=== PATIENT | male | born 1985 | race Caucasian/White ===

== ENCOUNTER 2024-01-08 00:18 | Observation (INO) ==
[2024-01-08] MEDS ORDERED: VANCOMYCIN CONSULT ACTIVE PRN (00:42)
--- NOTE | 2024-01-08 00:52 | Emergency Department Note ---
History of Present Illness General Chief complaint: Infection Stated complaint: INFECTION IN LEFT FOOT/LEG Time Seen by Provider: 01/08/24 00:36 History of Present Illness This 38-year-old male who uses drugs presents ER complaining of left lower leg infection. Patient was at [facility] twice and started on Keflex and Bactrim. He states he is only taken 1 dose of the medication. Patient states he was offered admission yesterday and declined. Patient states the infection has been spreading. Patient denies chest pain, dyspnea, fevers, flulike illness. His lymph nodes in his groin are swollen. Him and his partner are anxious with flight of ideas in the room and have difficulty staying still. Past Med/Surg History Problem List (Updated 01/08/24 @ 01:17 by Melisa Cassidy PA-C) Cellulitis of left lower extremity (Acute) Social History Smoking Status: Current every day smoker Feels Safe at Home: Yes Review of Systems A total of 10 systems reviewed and were otherwise negative Physical Exam Vital Signs Vital Signs - 24 hr 01/08/24 00:23 Temperature 37.0 C Temperature Source Oral Pulse Rate 111 H Blood Pressure 160/90 H Blood Pressure Mean 113 Pulse Oximetry 95 Oxygen Delivery Method Room Air Sepsis Recent Fever Within 48 Hours Yes Sepsis New/Unexplained Change in Mental Status No Sepsis Action Taken by Nursing No Action Required VITALS: Vitals are noted on the nurse's note and reviewed by myself. Vital signs stable. GENERAL: White male fidgety difficulty staying still, in no acute distress, nondiaphoretic, well-developed well-nourished. SKIN: Left lower leg medial aspect of the ankle with open sores with surrounding erythema up to the proximal knee concerning for cellulitis, capillary reflex less than 2 seconds. HEENT: Normocephalic. PERRLA. EOMI. Nares patent. Mucous membranes moist. Neck is supple without nuchal rigidity. HEART: Regular rate and rhythm LUNGS: Clear to auscultation bilaterally without wheezes, rales or rhonchi. No retractions or accessory muscle use. MUSCULOSKELETAL: No gross musculoskeletal defects. Left lower leg with extensive cellulitis. Left ankle with full range of motion. Wound culture taken and sent. Pedal pulses +2 and present. NEURO: Patient was alert and oriented to person place and time. No focal neurological deficits. Course Administered Medications Vancomycin HCl 1,500 mg/ (Sodium Chloride) 530 mls @ 200 mls/hr IV NOW ONE Stop: 01/08/24 03:20 Last Admin: 01/08/24 01:28 Dose: 200 mls/hr Documented By: ROSIBEL Discontinued Medications Ceftriaxone Sodium (Rocephin) 2,000 mg in 50 mls @ 100 mls/hr IV NOW STA Stop: 01/08/24 01:11 Last Infusion: 01/08/24 01:27 Dose: Infused Documented By: Admin: 01/08/24 00:56 Dose: 100 mls/hr Documented By: ROSIBEL Acetaminophen (Ofirmev) 1,000 mg in 100 mls @ 400 mls/hr IV NOW STA Stop: 01/08/24 00:56 Last Infusion: 01/08/24 01:11 Dose: Infused Documented By: Admin: 01/08/24 00:56 Dose: 400 mls/hr Documented By: ROSIBEL Medical Decision Making Medical Records Attestation: I reviewed the patient's medical records. Home Medications Current Medication List: was personally reviewed by me Laboratory Data Attestation: I reviewed the patient's lab results. 01/08/24 00:54 01/08/24 00:54 Lab Results 01/08/24 Range/Units 00:54 WBC 12.83 H (4.8-10.8) K/ul RBC 4.01 L (4.70-6.10) M/uL Hgb 12.3 L (14.0-18.0) g/dl Hct 36.2 L (42.0-52.0) % MCV 90.3 (80.0-100.0) fL MCH 30.7 (25.0-34.0) pg MCHC 34.0 (32.0-36.0) g/dL RDW Std Deviation 39.6 (36.4-46.3) fL RDW Coeff of Demarcus 11.9 (11.5-14.5) % Plt Count 183 (130-400) K/uL MPV 10.1 (9.4-12.4) fL Sodium 133 L (136-145) mmol/L Potassium 3.5 (3.5-5.1) mmol/L Chloride 97 L (98-107) mmol/L Carbon Dioxide 30 (21-32) mmol/L Anion Gap 6 (3-11) BUN 7 (6-23) mg/dl Creatinine 0.61 (0.6-1.4) mg/dl Est Cr Clr Drug Dosing 165.5 ml/min eGFR 127.66 BUN/Creatinine Ratio 11.5 (10-20) Glucose 98 (70-99(Fasting)) mg/dl Calcium 8.2 L (8.6-10.3) mg/dl Total Bilirubin 0.9 (0.2-1.0) mg/dl AST 19 (13-39) U/L ALT 13 (7-52) U/L Alkaline Phosphatase 42 (34-104) U/L Total Protein 6.4 (6.0-8.3) gm/dl Albumin 3.5 (3.4-5.0) gm/dl Globulin 2.9 (2.5-4.0) gm/dl Albumin/Globulin Ratio 1.2 (0.9-2) Imaging Data Attestation: I personally reviewed and interpreted this imaging study as follows: Radiologist's Impression: Venous Doppler Study 01/08/24 00:42 Exam(s): US VENOUS LEFT LOWER EXTREMITY EXAM: US Duplex Left Lower Extremity Veins CLINICAL HISTORY: swelling, ? DVT. TECHNIQUE: Real-time duplex ultrasound scan of the left lower extremity veins integrating B-mode two-dimensional vascular structure, Doppler spectral analysis, color flow Doppler imaging and compression. COMPARISON: No relevant prior studies available. FINDINGS: Deep veins: Unremarkable. No DVT in the visualized common femoral, femoral, proximal deep femoral or popliteal veins. The veins demonstrate normal color flow, are normally compressible, with normal phasic flow and/or augmentation response. The interrogated calf veins are patent. Superficial veins: Unremarkable. No thrombus in the saphenofemoral junction. Soft tissues: Subcutaneous edema noted at the left calf. No popliteal cyst. Lymph nodes: Borderline lymphadenopathy at the left groin measuring up to 10 mm in short axis diameter. IMPRESSION: No evidence for deep vein thrombosis involving the left lower extremity. Subcutaneous edema involving the left calf. Electronically signed by: Dick Vences MD 01/08/24 01:45 AM MDM Narrative Prior records reviewed and summarized as above. Triage Nursing notes reviewed. Additional history obtained from friend. The patient's history was concerning for swelling and redness of the skin. Differential diagnosis: Etiologies such as cellulitis, abscess, MRSA infection, DVT, necrotizing fasciitis, dermatitis, drug eruption, as well as others were entertained.. Physical examination: The physical examination was consistent with cellulitis ER treatment provided: Vancomycin, Rocephin and wound culture were done I did request the records from [facility] On reassessment the patient felt better. Diagnostics interpreted by me: The labs Independently Interpreted by myself revealed leukocytosis Wound culture pending I obtain the records from [facility] and the wound culture done by myself the other day she is the patient has multiple drug resistances but is sensitive to vancomycin. MRSA was present on the wound culture. Imaging studies: Ankle x-ray with soft tissue swelling without fracture or foreign body per my independent interpretation Ultrasound was reviewed and read by radiology as above Consultation: A consultation was placed with the hospitalist. The case was discussed and diagnostics were reviewed. The patient was evaluated in the ER for further treatment. This appears to be left lower leg cellulitis from MRSA. Repeat wound culture was done here. I did finally obtain the records from [facility] and patient's wound culture was reviewed. It is sensitive to vancomycin. There are multiple drug resistances. He has MRSA. Medicine was consulted and the case is discussed. He will be admitted to the medical service. By the evaluation outlined above emergent etiologies such as abscess, necrotizing fasciitis, DVT, as well as others were deemed relatively unlikely. The pt informed about the findings as listed above. All questions were answered and pleased with the treatment. The chart was completed utilizing [employer] Speech voice recognition software. Grammatical errors, random word insertions, pronoun errors, and incomplete sentences are an occassional consequence of this system due to software limitations, ambient noise, and hardware issues. Any formal questions or concerns about the content, text, or information contained within the body of this dictation should be directly addressed to the physician learning support assistant for clarification. Impression & Plan Cellulitis of left lower extremity Discharge Plan Visit Data Chief Complaint: Infection Stated Complaint: INFECTION IN LEFT FOOT/LEG ED Provider: Amy Reynoso ED Midlevel Provider: Melisa Cassidy Discharge Problem: Cellulitis of left lower extremity Patient Disposition: Admitted As Inpatient Condition: Good Forms Stand Alone Forms: My [facility] Referrals Referrals: PCP,NO [Primary Care Provider] -
[2024-01-08] MEDS: cefTRIAXone SODIUM 2,000 MG/50 ML BAG IV STA (00:56)
[2024-01-08] MEDS: ACETAMINOPHEN 1,000 MG/100 ML VIAL IV STA (00:56)
[2024-01-08 01:13] LABS: Hematocrit (blood only) 36.2 % (42.0-52.0); Hemoglobin 12.3 g/dl (14.0-18.0); Mean Corpuscular Hemoglobin 30.7 pg (25.0-34.0); Mean Corpuscular Volume 90.3 fL (80.0-100.0); Mean Platelet Volume 10.1 fL (9.4-12.4); Platelet Count 183 K/uL (130-400); RDW Coefficient of Variation 11.9 % (11.5-14.5); RDW Standard Deviation 39.6 fL (36.4-46.3); Red Blood Count 4.01 M/uL (4.70-6.10); White Blood Count 12.83 K/ul (4.8-10.8)
[2024-01-08] MEDS: VANCOMYCIN HCL 1,500 MG in SODIUM CHLORIDE 0.9% 500 ML IV ONE (01:28)
[2024-01-08 01:29] LABS: Albumin Globulin Ratio 1.2 (0.9-2); Albumin Level 3.5 gm/dl (3.4-5.0); BUN Creatinine Ratio 11.5 (10-20); Bilirubin,Total 0.9 mg/dl (0.2-1.0); Calcium 8.2 mg/dl (8.6-10.3); Creatinine Clr Calc Pharmacy 165.5 ml/min; Globulin 2.9 gm/dl (2.5-4.0); Potassium 3.5 mmol/L (3.5-5.1); Total Protein 6.4 gm/dl (6.0-8.3)
--- NOTE | 2024-01-08 01:46 | Ultrasound Report ---
Exam(s): US VENOUS LEFT LOWER EXTREMITY EXAM: US Duplex Left Lower Extremity Veins CLINICAL HISTORY: swelling, ? DVT. TECHNIQUE: Real-time duplex ultrasound scan of the left lower extremity veins integrating B-mode two-dimensional vascular structure, Doppler spectral analysis, color flow Doppler imaging and compression. COMPARISON: No relevant prior studies available. FINDINGS: Deep veins: Unremarkable. No DVT in the visualized common femoral, femoral, proximal deep femoral or popliteal veins. The veins demonstrate normal color flow, are normally compressible, with normal phasic flow and/or augmentation response. The interrogated calf veins are patent. Superficial veins: Unremarkable. No thrombus in the saphenofemoral junction. Soft tissues: Subcutaneous edema noted at the left calf. No popliteal cyst. Lymph nodes: Borderline lymphadenopathy at the left groin measuring up to 10 mm in short axis diameter. IMPRESSION: No evidence for deep vein thrombosis involving the left lower extremity. Subcutaneous edema involving the left calf. Electronically signed by: Dick Vences MD 01/08/24 01:45 AM
[2024-01-08 02:05] LABS: Basophils # (auto) 0.03 K/uL (0.00-0.20); Basophils % (auto) 0.2 %; Eosinophils # (auto) 0.13 K/uL (0.00-0.50); Immature Granulocytes # (auto) 0.06 K/uL (0.01-0.20); Immature Granulocytes % (auto) 0.5 %; Lymphocytes # (auto) 4.01 K/uL (1.20-3.40); Lymphocytes % (auto) 31.3 %; Monocytes # (auto) 1.32 K/uL (0.11-0.59); Monocytes % (auto) 10.3 %; Neutrophils # (auto) 7.28 K/uL (1.40-6.50); Neutrophils % (auto) 56.7 %; Polychromasia 1+
--- NOTE | 2024-01-08 02:15 | History & Physical Report ---
Date of Service January 08, 2024 Assessment & Plan (1) Cellulitis of left lower extremity: Plan: 38-year-old male with no significant past medical history with ongoing cocaine use and history of IV drug use and states not using IV drugs since last 2 years comes because of left ankle wound and cellulitis. Patient states he had some bug bite 4 days ago and started to develop infection in the left ankle region. He went to [facility] couple of days ago and was prescribed seems Keflex and Bactrim and discharged. He did not take those antibiotics but the next day the infection was getting worse so he went back to [facility] again yesterday when they admitted him. Patient got paranoid and signed out AMA. And as the infection is getting worse and spreading he came here today and agrees to stay in hospital. Cultures from the [facility] showing MRSA in the wound which is also resistant to Bactrim and sensitive to Vanco and Dapto. Patient states was having fevers. Has pain in the left leg and also feeling some lump in the left groin region. Patient states he also has some small lump under the chin which he is concerned about. Denies any headache. Vision is okay. No runny nose or sore throat or cough. No nausea. No chest pain. Says he has some shortness of breath. No abdominal pain. Says he is constipated. Micturating okay. 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 Cellulitis of left lower extremity Wound/ulcer in left ankle medial aspect Cultures from [facility] growing MRSA ER empirically started on IV Vanco and Rocephin which will be continued Will follow the response No DVT on ultrasound Will follow CT scan for any underlying abscess or necrosis History of drug use Counseling History of tobacco use Counseling Small lump in neck will follow ultrasound DVT prophylaxis Lovenox Disposition Medical floor Full code History of Present Illness Chief Complaint: Left lower extremity wound and cellulitis Primary Care Provider: NO PCP 38-year-old male with no significant past medical history with ongoing cocaine use and history of IV drug use and states not using IV drugs since last 2 years comes because of left ankle wound and cellulitis. Patient states he had some bug bite 4 days ago and started to develop infection in the left ankle region. He went to [facility] couple of days ago and was prescribed seems Keflex and Bactrim and discharged. He did not take those antibiotics but the next day the infection was getting worse so he went back to [facility] again yesterday when they admitted him. Patient got paranoid and signed out AMA. And as the infection is getting worse and spreading he came here today and agrees to stay in hospital. Cultures from the [facility] showing MRSA in the wound which is also resistant to Bactrim and sensitive to Vanco and Dapto. Patient states was having fevers. Has pain in the left leg and also feeling some lump in the left groin region. Patient states he also has some small lump under the chin which he is concerned about. Denies any headache. Vision is okay. No runny nose or sore throat or cough. No nausea. No chest pain. Says he has some shortness of breath. No abdominal pain. Says he is constipated. Micturating okay. 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 Past medical history none Past surgical history left collarbone surgery Social history. Smokes 1 pack a day since age 24. Denies any alcohol use. History of IV drug use is not doing IV drugs since last 2 years. Says she uses cocaine sometimes but not on regular basis last time used was yesterday. Family history. Father had prostate and bladder cancer. Mother has hypertension. Allergies Allergy/AdvReac Type Severity Reaction Status Date / Time No Known Allergies Allergy Unverified 01/08/24 04:01 Home Medications Medication Instructions Recorded Confirmed Type buspirone 10 mg tablet mg 01/08/24 History quetiapine 100 mg tablet (Seroquel) 100 mg PO HS 01/08/24 01/08/24 History sertraline 100 mg tablet (Zoloft) 100 mg 01/08/24 History Past Med/Surg History Problem List (Updated 01/08/24 @ 01:17 by Melisa Cassidy PA-C) Cellulitis of left lower extremity (Acute) Social History Smoking Status: Current every day smoker Tobacco Type: Cigarettes Second Hand Exposure: No; Do You Dip or Chew Tobacco: No; Tobacco Cessation Education Requested by Patient: No Hx Alcohol Use: No Hx Substance Use: Yes Last Used Substance: Days (ago) Preferred Language: Cambodian 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 ENT- oropharynx clear Neck- supple, no JVD. Lungs- clear to auscultation no wheezing or crackles Heart- regular rhythm; no murmur, no gallop. Abdomen- normal bowel sounds, soft, nontender, no distension Extremities- open ulcer/wound seen in left ankle medial aspect with surrounding edema and erythema seen. Neuro- alert, oriented PERRL, no facial palsy; no dysarthria; moves extremities Results & Data Results & Data Vital Signs (Past 12 Hours) Vital Signs Temp Pulse BP Pulse Ox O2 Del Method 01/08/24 00:23 37.0 C 111 H 160/90 H 95 Room Air Diagnostic Findings Laboratory Results WBC 12.83 K/ul (4.8-10.8) H 01/08/24 00:54 RBC 4.01 M/uL (4.70-6.10) L 01/08/24 00:54 Hgb 12.3 g/dl (14.0-18.0) L 01/08/24 00:54 Hct 36.2 % (42.0-52.0) L 01/08/24 00:54 MCV 90.3 fL (80.0-100.0) 01/08/24 00:54 MCH 30.7 pg (25.0-34.0) 01/08/24 00:54 MCHC 34.0 g/dL (32.0-36.0) 01/08/24 00:54 RDW Std Deviation 39.6 fL (36.4-46.3) 01/08/24 00:54 RDW Coeff of Demarcus 11.9 % (11.5-14.5) 01/08/24 00:54 Plt Count 183 K/uL (130-400) 01/08/24 00:54 MPV 10.1 fL (9.4-12.4) 01/08/24 00:54 Immature Gran % (Auto) 0.5 % 01/08/24 00:54 Neut % (Auto) 56.7 % 01/08/24 00:54 Lymph % (Auto) 31.3 % 01/08/24 00:54 Mesa % (Auto) 10.3 % 01/08/24 00:54 Eos % (Auto) 1.0 % 01/08/24 00:54 Baso % (Auto) 0.2 % 01/08/24 00:54 Neut # (Auto) 7.28 K/uL (1.40-6.50) H 01/08/24 00:54 Lymph # (Auto) 4.01 K/uL (1.20-3.40) H 01/08/24 00:54 Mesa # (Auto) 1.32 K/uL (0.11-0.59) H 01/08/24 00:54 Eos # (Auto) 0.13 K/uL (0.00-0.50) 01/08/24 00:54 Baso # (Auto) 0.03 K/uL (0.00-0.20) 01/08/24 00:54 Immature Gran # (Auto) 0.06 K/uL (0.01-0.20) 01/08/24 00:54 Polychromasia 1+ 01/08/24 00:54 Sodium 133 mmol/L (136-145) L 01/08/24 00:54 Potassium 3.5 mmol/L (3.5-5.1) 01/08/24 00:54 Chloride 97 mmol/L (98-107) L 01/08/24 00:54 Carbon Dioxide 30 mmol/L (21-32) 01/08/24 00:54 Anion Gap 6 (3-11) 01/08/24 00:54 BUN 7 mg/dl (6-23) 01/08/24 00:54 Creatinine 0.61 mg/dl (0.6-1.4) 01/08/24 00:54 Est Cr Clr Drug Dosing 165.5 ml/min 01/08/24 00:54 eGFR 127.66 01/08/24 00:54 BUN/Creatinine Ratio 11.5 (10-20) 01/08/24 00:54 Glucose 98 mg/dl (70-99(Fasting)) 01/08/24 00:54 Calcium 8.2 mg/dl (8.6-10.3) L 01/08/24 00:54 Total Bilirubin 0.9 mg/dl (0.2-1.0) 01/08/24 00:54 AST 19 U/L (13-39) 01/08/24 00:54 ALT 13 U/L (7-52) 01/08/24 00:54 Alkaline Phosphatase 42 U/L (34-104) 01/08/24 00:54 Total Protein 6.4 gm/dl (6.0-8.3) 01/08/24 00:54 Albumin 3.5 gm/dl (3.4-5.0) 01/08/24 00:54 Globulin 2.9 gm/dl (2.5-4.0) 01/08/24 00:54 Albumin/Globulin Ratio 1.2 (0.9-2) 01/08/24 00:54 Impressions Venous Doppler Study 01/08/24 00:42 Exam(s): US VENOUS LEFT LOWER EXTREMITY EXAM: US Duplex Left Lower Extremity Veins CLINICAL HISTORY: swelling, ? DVT. TECHNIQUE: Real-time duplex ultrasound scan of the left lower extremity veins integrating B-mode two-dimensional vascular structure, Doppler spectral analysis, color flow Doppler imaging and compression. COMPARISON: No relevant prior studies available. FINDINGS: Deep veins: Unremarkable. No DVT in the visualized common femoral, femoral, proximal deep femoral or popliteal veins. The veins demonstrate normal color flow, are normally compressible, with normal phasic flow and/or augmentation response. The interrogated calf veins are patent. Superficial veins: Unremarkable. No thrombus in the saphenofemoral junction. Soft tissues: Subcutaneous edema noted at the left calf. No popliteal cyst. Lymph nodes: Borderline lymphadenopathy at the left groin measuring up to 10 mm in short axis diameter. IMPRESSION: No evidence for deep vein thrombosis involving the left lower extremity. Subcutaneous edema involving the left calf. Electronically signed by: Dick Vences MD 01/08/24 01:45 AM Code Status & VTE Plan VTE Prophylaxis Plan VTE Prophylaxis will be ordered: Yes
[2024-01-08] MEDS ORDERED: POLYETHYLENE (MIRALAX) 17 GM PACK PO PRN (03:21)
[2024-01-08] MEDS ORDERED: HYDROmorphone INJ 0.5 MG/0.5 ML SYR IV PRN (03:21)
[2024-01-08] MEDS ORDERED: ACETAMINOPHEN 325 MG TAB PO PRN (03:21)
[2024-01-08 04:30] LABS: Amphetamines+Metham, Urine Neg (Neg); Barbiturates, Urine Neg (Neg); Benzodiazepine, Urine Pos (Neg); Cocaine, Urine Pos (Neg); Fentanyl, Urine Pos (Neg); MDMA (Ecstacy), Urine Neg (Neg); Marijuana, Urine Neg (Neg); Methadone, Urine Neg (Neg); Opiate, Urine Neg (Neg); Phencyclidine, Urine Neg (Neg)
[2024-01-08] MEDS: Patient's ALLERGY Info needs ENTERED STA (04:31)
[2024-01-08] MEDS: SODIUM CHLORIDE 0.9% 1,000 ML IV SCH (04:42)
--- NOTE | 2024-01-08 05:07 | Ultrasound Report ---
Exam(s): US NECK EXAM: US Soft Tissues of the Neck CLINICAL HISTORY: small lump under chin. TECHNIQUE: Real-time ultrasound scan of the soft tissues of the neck with image documentation. COMPARISON: No relevant prior studies available. FINDINGS: Soft tissues: Unremarkable. No abscess. No foreign body. Lymph nodes: Subtle dermal lymph nodes are noted in the clinical area of concern, measuring 5 mm in short axis diameter. IMPRESSION: Subtle dermal lymph nodes are noted in the clinical area of concern, measuring 5 mm in short axis diameter. Electronically signed by: Dick Vences MD 01/08/24 05:07 AM
--- NOTE | 2024-01-08 05:11 | CT Scan Report ---
Exam(s): CT LEFT FOOT Without Contrast EXAM: CT Left Lower Extremity Without Intravenous Contrast, Foot CLINICAL HISTORY: left ankle and foot infection and edema.. TECHNIQUE: Axial computed tomography images of the left foot without intravenous contrast. CTDI is 24.91 mGy and DLP is 857.98 mGy-cm. Automated exposure control was utilized for the study. A dose lowering technique was utilized adhering to the principles of ALARA. COMPARISON: No relevant prior studies available. FINDINGS: Limitations: There is mild diffuse motion artifact, which degrades image quality throughout the examination. Bones/joints: The osseous structures are intact without acute traumatic injury. No definite evidence for cortical destruction or periosteal reaction. No dislocation. Soft tissues: Prominent subcutaneous edema and soft tissue swelling, most prominent involving the medial aspect of the ankle, but also noted involving the dorsum of the foot. No loculated fluid collection or tracking subcutaneous emphysema. No radiopaque foreign body. IMPRESSION: Prominent subcutaneous edema and soft tissue swelling, most prominent involving the medial aspect of the ankle, but also noted involving the dorsum of the foot. No loculated fluid collection or tracking subcutaneous emphysema. In the absence of traumatic injury, the primary consideration is cellulitis or venous stasis changes. Electronically signed by: Dick Vences MD 01/08/24 05:09 AM
--- NOTE | 2024-01-08 05:12 | CT Scan Report ---
Exam(s): CT LEFT ANKLE Without Contrast EXAM: CT Left Lower Extremity Without Intravenous Contrast, Ankle CLINICAL HISTORY: left ankle and foot infection and edema.. TECHNIQUE: Axial computed tomography images of the left ankle without intravenous contrast. CTDI is 24.91 mGy and DLP is 857.98 mGy-cm. Automated exposure control was utilized for the study. A dose lowering technique was utilized adhering to the principles of ALARA. COMPARISON: No relevant prior studies available. FINDINGS: Limitations: There is motion artifact, which mildly degrades image quality on multiple image slices. Bones/joints: No acute fracture. No dislocation. Soft tissues: Circumferential subcutaneous fat stranding and soft tissue swelling throughout the distal calf and ankle, most prominent medially. No loculated fluid collection or tracking subcutaneous emphysema. The regional muscle bundles are intact. No acute osseous abnormality. No radiopaque foreign body or subcutaneous emphysema. IMPRESSION: Circumferential subcutaneous fat stranding and soft tissue swelling throughout the distal calf and ankle, most prominent medially. No loculated fluid collection or tracking subcutaneous emphysema to suggest necrotizing fasciitis. The regional muscle bundles are intact. In the absence of traumatic injury, the primary consideration is cellulitis or venous stasis changes. Electronically signed by: Dick Vences MD 01/08/24 05:11 AM
--- NOTE | 2024-01-08 06:53 | XRay Report ---
LEFT ANKLE 3 VIEWS CLINICAL HISTORY: Left ankle pain. Infection. Wounds. FINDINGS: 3 views of the left ankle are obtained. No prior studies are available for comparison at th e time of dictation. The skeletal structures are well mineralized. No fracture is seen. The ankle mor tise is intact. There is no bony erosion. No joint effusion is identified. Soft tissue edema is seen throughout the imaged left lower extremity. No soft tissue gas or radiodense foreign body is seen. A wound is suggested overlying the medial malleolus. IMPRESSION: Soft tissue edema with no acute bony abnormality identified. Electronically signed by: Christiano Stephens M.D. 01/08/2024 6:51 AM
[2024-01-08 07:27] LABS: Basophils # (auto) 0.04 K/uL (0.00-0.20); Basophils % (auto) 0.3 %; Eosinophils # (auto) 0.25 K/uL (0.00-0.50); Eosinophils % (auto) 2.1 %; Hematocrit (blood only) 34.7 % (42.0-52.0); Hemoglobin 11.7 g/dl (14.0-18.0); Immature Granulocytes # (auto) 0.04 K/uL (0.01-0.20); Immature Granulocytes % (auto) 0.3 %; Lymphocytes # (auto) 3.96 K/uL (1.20-3.40); Lymphocytes % (auto) 33.2 %; Mean Corpuscular Hemoglobin 30.7 pg (25.0-34.0); Mean Corpuscular Hgb Conc 33.7 g/dL (32.0-36.0); Mean Corpuscular Volume 91.1 fL (80.0-100.0); Mean Platelet Volume 10.2 fL (9.4-12.4); Monocytes # (auto) 1.34 K/uL (0.11-0.59); Monocytes % (auto) 11.3 %; Neutrophils # (auto) 6.28 K/uL (1.40-6.50); Neutrophils % (auto) 52.8 %; Platelet Count 194 K/uL (130-400); RDW Coefficient of Variation 11.9 % (11.5-14.5); RDW Standard Deviation 39.9 fL (36.4-46.3); Red Blood Count 3.81 M/uL (4.70-6.10); White Blood Count 11.91 K/ul (4.8-10.8)
[2024-01-08 08:09] LABS: BUN Creatinine Ratio 14.8 (10-20); Calcium 7.9 mg/dl (8.6-10.3); Creatinine Clr Calc Pharmacy 164.6 ml/min; Magnesium 2.1 mg/dl (1.7-2.4); Potassium 3.8 mmol/L (3.5-5.1)
--- NOTE | 2024-01-08 08:38 | Hospitalist Progress Note ---
Date of Service January 08, 2024 Assessment & Plan (1) Cellulitis of left lower extremity: Plan: 38-year-old male with no PMH with ongoing cocaine use and history of IV drug use and states not using IV drugs since last 2 years comes because of left ankle wound and cellulitis. Reports he had some bug bite 4 days ago and started to develop infection in the left ankle region. He went to [place] [facility] couple of days ago and was prescribed seems Keflex and Bactrim and discharged. He did not take those antibiotics but the next day the infection was getting worse so he went back to [place] ER again yesterday when they admitted him. Patient got paranoid and signed out AMA. And as the infection is getting worse and spreading he came here today and agrees to stay in hospital. Cultures from the [place] showing MRSA in the wound which is also resistant to Bactrim and sensitive to Vanco and Dapto. Patient states was having fevers. Has pain in the left leg and also feeling some lump in the left groin region. Patient states he also has some small lump under the chin which he is concerned about. Cellulitis of left lower extremity: Acute Wound/ulcer in left ankle medial aspect Cultures from [place] growing MRSA; wound and blood culture pending here Started on IV Vanco + Rocephin; continue for now and adjust based on culture results Discontinue IVF; eating adequately Lower extremity CT: No underlying abscess or necrosis -subcutaneous fat stranding and soft tissue swelling throughout the distal calf and ankle, most prominent medially. -No loculated fluid collection or tracking subcutaneous emphysema to suggest necrotizing fasciitis. -The regional muscle bundles are intact. Await further reccs from ID; consider oritavancin/discuss with CM if moving forward with this option for justification given his drug history/compliance WOCN placed for superficial evaluation trend CBC in AM Small lump in neck x2 Acute States this has been present x a few weeks Leukocytosis 11.9; suspect more related to cellulitis Two painless submental/submandibular enlarged lymph nodes Family history of bladder and prostate ca Soft Tissue ultrasound: Subtle dermal lymph nodes are noted in the clinical area of concern, measuring 5 mm in short axis diameter. Neck CT c/co ordered to further investigate nodules. Will check TSH; no goiter on examination History of drug use: History of tobacco use: Counseling Last IV use 2021; used crack cocaine that he said had fentanyl in it 2 days ago Denies Nicotine patch Disposition: PCP:none Code Status: Full Code VTE Prophylaxis: [facility] Medical floor I spent a total of 61 minutes coordinating, documenting, and providing care for this patient excluding time spent in the performance of separately billed services. All of the aforementioned completed while collaborating with the assigned attending physician for a full treatment plan. Please see their addendum for further details. Admission and Anticipated Discharge Date Admission Date: January 08, 2024 Supervising Physician Co-Signing Physician Notes I have seen and discussed the case with the collaborating advanced practitioner. I agree with the above PN. I have reviewed and confirmed the patients medical history, the findings on physical examination, and the patients diagnosis and treatment plan with Manny SANCHEZ and agree with the information documented. Pending ID consult, ?orbactiv candidate? CT neck soft tissue w/ con to eval LAD rest of plan as above I spent a total of 5 minutes coordinating, documenting, and providing care for this patient excluding time spent in the performance of separately billed services. All of the aforementioned completed outside of collaborating with the assigned advanced practitioner for a full treatment plan. I have reviewed the advanced practitioner's documentation, and I agree with, and take responsibility for the plan of care Subjective Pt sitting in his hospital bed in no apparent distress Falling asleep intermittently throughout visit; denies any in room illicit drug use Lengthy conversation about drug use, no judgement and reinforcing hospital policy and importance of being truthful with information to help steer hospital care Pt denies KRAMER, dizziness, SOB, chest pain or palpitations, fever or chills Review of Systems Review of Systems: Neuro: (-) Falls, trauma, slurred speech HEENT: (-) KRAMER, dizziness, dysphagia, visual or auditory changes (+) two nodules under neck CV: (-) CP, palpitations, (-) swelling from heart symptoms Resp: (-) SOB GI: (-) appetite changes, N/V/D, bowel changes : (-) urinary changes Skin: (-) rashes Psych: (-) anxiety, depression Physical Exam Physical Exam: Neuro: AAOx4, PERRLA, no aphagia, memory changes, CNII-XII grossly intact HEENT: head normocephalic, moist mucus membranes (+) two painless nodules appreciated on submandibular region of lower jaw. CV: S1/S2, (-) M/G/R, (-) edema, cap refill < 3 seconds Resp: Lungs CTA in all pedro. On RA GI: Abdomen S/NT/ND, Ax4 bowel sounds, (-) CVA tenderness Musculoskeletal: 5/5 B/L UE strength, 5/5 B/L LE strength. No gait disturbance Skin: (-) rashes , (+) left lower extremity swelling with medial aspect of the ankle (-) malodor (+) circumferential erythema Psych: euthymic mood Results & Data Results & Data Vital Signs (Past 12 Hours) Vital Signs Temp Pulse Pulse Pulse Resp BP BP 01/08/24 07:40 36.4 C L 91 H 16 124/80 01/08/24 03:22 36.7 C 99 H 18 133/82 01/08/24 02:29 87 16 01/08/24 00:23 37.0 C 111 H 160/90 H BP Pulse Ox O2 Del Method 01/08/24 07:40 99 Room Air 01/08/24 03:22 97 Room Air 01/08/24 02:29 153/99 H 96 Room Air 01/08/24 00:23 95 Room Air Laboratory Results Short CBC 01/08/24 01/08/24 Range/Units 00:54 07:04 WBC 12.83 H 11.91 H (4.8-10.8) K/ul Hgb 12.3 L 11.7 L (14.0-18.0) g/dl Hct 36.2 L 34.7 L (42.0-52.0) % Plt Count 183 194 (130-400) K/uL BMP 01/08/24 01/08/24 00:54 07:04 Sodium 133 L 137 Potassium 3.5 3.8 Chloride 97 L 100 Carbon Dioxide 30 30 BUN 7 9 Creatinine 0.61 0.61 Glucose 98 122 H Calcium 8.2 L 7.9 L Liver Function 01/08/24 Range/Units 00:54 Total Bilirubin 0.9 (0.2-1.0) mg/dl AST 19 (13-39) U/L ALT 13 (7-52) U/L Alkaline Phosphatase 42 (34-104) U/L Albumin 3.5 (3.4-5.0) gm/dl Diagnostic Findings Venous Doppler Study 01/08/24 00:42 Exam(s): US VENOUS LEFT LOWER EXTREMITY EXAM: US Duplex Left Lower Extremity Veins CLINICAL HISTORY: swelling, ? DVT. TECHNIQUE: Real-time duplex ultrasound scan of the left lower extremity veins integrating B-mode two-dimensional vascular structure, Doppler spectral analysis, color flow Doppler imaging and compression. COMPARISON: No relevant prior studies available. FINDINGS: Deep veins: Unremarkable. No DVT in the visualized common femoral, femoral, proximal deep femoral or popliteal veins. The veins demonstrate normal color flow, are normally compressible, with normal phasic flow and/or augmentation response. The interrogated calf veins are patent. Superficial veins: Unremarkable. No thrombus in the saphenofemoral junction. Soft tissues: Subcutaneous edema noted at the left calf. No popliteal cyst. Lymph nodes: Borderline lymphadenopathy at the left groin measuring up to 10 mm in short axis diameter. IMPRESSION: No evidence for deep vein thrombosis involving the left lower extremity. Subcutaneous edema involving the left calf. Electronically signed by: Dick Vences MD 01/08/24 01:45 AM Ankle X-Ray 01/08/24 00:55 LEFT ANKLE 3 VIEWS CLINICAL HISTORY: Left ankle pain. Infection. Wounds. FINDINGS: 3 views of the left ankle are obtained. No prior studies are available for comparison at the time of dictation. The skeletal structures are well mineralized. No fracture is seen. The ankle mortise is intact. There is no bony erosion. No joint effusion is identified. Soft tissue edema is seen throughout the imaged left lower extremity. No soft tissue gas or radiodense foreign body is seen. A wound is suggested overlying the medial malleolus. IMPRESSION: Soft tissue edema with no acute bony abnormality identified. Electronically signed by: Christiano Stephens M.D. 01/08/2024 6:[address] 01/08/24 03:21 Exam(s): CT LEFT FOOT Without Contrast EXAM: CT Left Lower Extremity Without Intravenous Contrast, Foot CLINICAL HISTORY: left ankle and foot infection and edema.. TECHNIQUE: Axial computed tomography images of the left foot without intravenous contrast. CTDI is 24.91 mGy and DLP is 857.98 mGy-cm. Automated exposure control was utilized for the study. A dose lowering technique was utilized adhering to the principles of ALARA. COMPARISON: No relevant prior studies available. FINDINGS: Limitations: There is mild diffuse motion artifact, which degrades image quality throughout the examination. Bones/joints: The osseous structures are intact without acute traumatic injury. No definite evidence for cortical destruction or periosteal reaction. No dislocation. Soft tissues: Prominent subcutaneous edema and soft tissue swelling, most prominent involving the medial aspect of the ankle, but also noted involving the dorsum of the foot. No loculated fluid collection or tracking subcutaneous emphysema. No radiopaque foreign body. IMPRESSION: Prominent subcutaneous edema and soft tissue swelling, most prominent involving the medial aspect of the ankle, but also noted involving the dorsum of the foot. No loculated fluid collection or tracking subcutaneous emphysema. In the absence of traumatic injury, the primary consideration is cellulitis or venous stasis changes. Electronically signed by: Dick Vences MD 01/08/24 05:[address] 01/08/24 03:21 Exam(s): CT LEFT ANKLE Without Contrast EXAM: CT Left Lower Extremity Without Intravenous Contrast, Ankle CLINICAL HISTORY: left ankle and foot infection and edema.. TECHNIQUE: Axial computed tomography images of the left ankle without intravenous contrast. CTDI is 24.91 mGy and DLP is 857.98 mGy-cm. Automated exposure control was utilized for the study. A dose lowering technique was utilized adhering to the principles of ALARA. COMPARISON: No relevant prior studies available. FINDINGS: Limitations: There is motion artifact, which mildly degrades image quality on multiple image slices. Bones/joints: No acute fracture. No dislocation. Soft tissues: Circumferential subcutaneous fat stranding and soft tissue swelling throughout the distal calf and ankle, most prominent medially. No loculated fluid collection or tracking subcutaneous emphysema. The regional muscle bundles are intact. No acute osseous abnormality. No radiopaque foreign body or subcutaneous emphysema. IMPRESSION: Circumferential subcutaneous fat stranding and soft tissue swelling throughout the distal calf and ankle, most prominent medially. No loculated fluid collection or tracking subcutaneous emphysema to suggest necrotizing fasciitis. The regional muscle bundles are intact. In the absence of traumatic injury, the primary consideration is cellulitis or venous stasis changes. Electronically signed by: Dick Vences MD 01/08/24 05:11 AM Soft Tissue Ultrasound 01/08/24 03:21 Exam(s): US NECK EXAM: US Soft Tissues of the Neck CLINICAL HISTORY: small lump under chin. TECHNIQUE: Real-time ultrasound scan of the soft tissues of the neck with image documentation. COMPARISON: No relevant prior studies available. FINDINGS: Soft tissues: Unremarkable. No abscess. No foreign body. Lymph nodes: Subtle dermal lymph nodes are noted in the clinical area of concern, measuring 5 mm in short axis diameter. IMPRESSION: Subtle dermal lymph nodes are noted in the clinical area of concern, measuring 5 mm in short axis diameter. Electronically signed by: Dick Vences MD 01/08/24 05:07 AM
[2024-01-08] MEDS: VANCOMYCIN HCL 1,250 MG in SODIUM CHLORIDE 0.9% 250 ML IV SCH (08:58)
[2024-01-08] MEDS: ENOXAPARIN INJ 40 MG/0.4 ML SYR SQ SCH (08:59)
[2024-01-08 09:33] LABS: Thyroid Stimulating Hormone 1.443 uIu/ml (0.300-4.500)
--- NOTE | 2024-01-08 10:17 | Pharmacy Report ---
Pharmacy PK ABX Note - Date of Service January 08, 2024 - Assessment and Plan Assessment 38 year old M receiving Vancomycin and Rocephin for treatment of L foot cellulitis. Culture from [facility] show MRSA. Wound and blood cultures pending here. Day # 1 of antimicrobial therapy. WBC 11.9, afebrile Plan Vancomycin * Loading dose: 1500 mg IV x 1 * Maintenance dose: 1250 mg IV every 8 hours * Regimen is predicted to achieve target AUC/SOFIA of 400-600 mg/L.hr * Trough level ordered for: 01/09/24 @0730 Rocephin 2g IV Q24 Pharmacy will continue to follow and will adjust dose/frequency as necessary. Thank you. Pharmacy has transitioned to AUC monitoring for vancomycin. AUC/SOFIA is the preferred PK/PD target and is associated with decreased risk of nephrotoxicity compared to traditional trough targets.
[2024-01-08] MEDS: OPTIRAY 320 100ml IV ONE (12:17)
--- NOTE | 2024-01-08 13:08 | CT Scan Report ---
CT soft tissue neck wo/w con CLINICAL HISTORY: submandibular nodules x2 Technique: Axial CT images of the soft tissues of the neck were obtained following intravenous admini stration of 100 cc of Omnipaque 300. Automated dose lowering techniques and/or adjustment according t o patient size were utilized for this exam. Comparison: None available at the time of this dictation. Findings: The oropharynx, hypopharynx, larynx, and trachea are patent. Subcentimeter submandibular nodes are se en measuring up to 5 mm in short axis. The parotid glands, submandibular glands, and thyroid gland ar e unremarkable. Imaged portions of the brain parenchyma are unremarkable. Mucous retention cysts are seen bilaterall y. Plate-screw fixation hardware overlies the left clavicle. Impression: Subcentimeter submandibular lymph nodes are seen. ACT 112: Negative or not required by law. Electronically signed by: Dony Lockett M.D. 01/08/2024 1:06 PM
[2024-01-08] MEDS: cefTRIAXone SODIUM 2,000 MG/50 ML BAG IV SCH (22:38)
[2024-01-09] MEDS ORDERED: VANCOMYCIN LEVEL STA (07:35)
--- NOTE | 2024-01-09 07:35 | Hospitalist Progress Note ---
Date of Service January 09, 2024 Assessment & Plan (1) Cellulitis of left lower extremity: Plan: 38-year-old male with no PMH with ongoing cocaine use and history of IV drug use and states not using IV drugs since last 2 years comes because of left ankle wound and cellulitis. Reports he had some bug bite 4 days ago and started to develop infection in the left ankle region. He went to [place] ER couple of days ago and was prescribed seems Keflex and Bactrim and discharged. He did not take those antibiotics but the next day the infection was getting worse so he went back to [place] ER again yesterday when they admitted him. Patient got paranoid and signed out AMA. And as the infection is getting worse and spreading he came here today and agrees to stay in hospital. Cultures from the [place] showing MRSA in the wound which is also resistant to Bactrim and sensitive to Vanco and Dapto. Patient states was having fevers. Has pain in the left leg and also feeling some lump in the left groin region. Patient states he also has some small lump under the chin which he is concerned about. Cellulitis of left lower extremity: Acute Wound/ulcer in left ankle medial aspect Cultures from [place] growing MRSA; wound and blood culture pending here No leukocytosis; improved from 11--> 6 Started on IV Vanco + Rocephin; continue for now; Day # 2 of antimicrobial therapy on 01/08. Discontinue IVF; eating adequately Lower extremity CT: No underlying abscess or necrosis -subcutaneous fat stranding and soft tissue swelling throughout the distal calf and ankle, most prominent medially. -No loculated fluid collection or tracking subcutaneous emphysema to suggest necrotizing fasciitis. -The regional muscle bundles are intact. Await further reccs from ID; need to have them see patient on 01/09; consider oritavancin/dalbavancin/discuss with CM if moving forward with this option for justification given his drug history/compliance WOCN following patient Small lump in neck x2 Acute States this has been present x a few weeks, seems to be slightly less today. No leukocytosis today Two painless submental/submandibular enlarged lymph nodes Family history of bladder and prostate ca Soft Tissue ultrasound: Subtle dermal lymph nodes are noted in the clinical area of concern, measuring 5 mm in short axis diameter. Neck CT Subcentimeter submandibular lymph nodes are seen. TSH 1.443; no goiter on examination History of drug use: History of tobacco use: Counseling Last IV use 2021; used crack cocaine that he said had fentanyl in it 2 days ago Denies Nicotine patch Per nursing he was found to have his vaping pen in his bed; security was contacted to confiscate this Suspicious blow pop was found in his room; could be a fentanyl lollipop--> removed Disposition: PCP:none/reported one through [facility] system Code Status: Full Code VTE Prophylaxis: Lovenox SQ Medical floor I spent a total of 56 minutes coordinating, documenting, and providing care for this patient excluding time spent in the performance of separately billed services. All of the aforementioned completed while collaborating with the assigned attending physician for a full treatment plan. Please see their addendum for further details. Admission and Anticipated Discharge Date Admission Date: January 08, 2024 Supervising Physician Co-Signing Physician Notes I have seen and discussed the case with the collaborating advanced practitioner. I agree with the above PN. I have reviewed and confirmed the patients medical history, the findings on physical examination, and the patients diagnosis and treatment plan with Manny SANCHEZ and agree with the information documented. Confirming if patient is candidate for dalbavancin 1500mg x 1 on discharge given noncompliance history (MRSA on cultures as op) EKG for tachycardia--likely iso infection/substance misuse I spent a total of 5 minutes coordinating, documenting, and providing care for this patient excluding time spent in the performance of separately billed services. All of the aforementioned completed outside of collaborating with the assigned advanced practitioner for a full treatment plan. I have reviewed the advanced practitioner's documentation, and I agree with, and take responsibility for the plan of care Subjective Pt per nursing was difficult to arouse today. Pt AAOx4 and able to wake up and walk to the BR with me Per nursing he was found to have his vaping pen in his bed; security was contacted to confiscate this Suspicious blow pop was found in his room; could be a fentanyl lollipop--> removed Pt denies KRAMER, fever, chills, dizziness, SOB, chest pain, palpitations, N/V/D Left ankle with erythema extending upward from wound and continued drainage; patient able to ambulate and weight bear Please see A/P for further details Review of Systems Review of Systems: Neuro: (-) Falls, trauma, slurred speech HEENT: (-) KRAMER, dizziness, dysphagia, visual or auditory changes (+) two nodules under neck CV: (-) CP, palpitations, (-) swelling from heart symptoms Resp: (-) SOB GI: (-) appetite changes, N/V/D, bowel changes : (-) urinary changes Skin: (-) rashes Psych: (-) anxiety, depression Physical Exam Physical Exam: Neuro: AAOx4, PERRLA, no aphagia, memory changes, CNII-XII grossly intact HEENT: head normocephalic, moist mucus membranes (+) two painless nodules appreciated on submandibular region of lower jaw. CV: S1/S2, (-) M/G/R, (-) edema, cap refill < 3 seconds Resp: Lungs CTA in all pedro. On RA GI: Abdomen S/NT/ND, Ax4 bowel sounds, (-) CVA tenderness Musculoskeletal: 5/5 B/L UE strength, 5/5 B/L LE strength. No gait disturbance Skin: (-) rashes , (+) left lower extremity swelling with medial aspect of the ankle (-) malodor (+) circumferential erythema Psych: euthymic mood Results & Data Results & Data Vital Signs (Past 12 Hours) Vital Signs Temp Pulse Resp BP Pulse Ox O2 Del Method 01/08/24 21:14 37.3 C 119 H 16 142/83 H 97 Room Air Laboratory Results [facility] 01/08/24 07:04 Sodium 137 Potassium 3.8 Chloride 100 Carbon Dioxide 30 BUN 9 Creatinine 0.61 Glucose 122 H Calcium 7.9 L
[2024-01-09 07:49] LABS: Basophils # (auto) 0.03 K/uL (0.00-0.20); Basophils % (auto) 0.5 %; Eosinophils # (auto) 0.15 K/uL (0.00-0.50); Eosinophils % (auto) 2.3 %; Hemoglobin 11.1 g/dl (14.0-18.0); Immature Granulocytes # (auto) 0.02 K/uL (0.01-0.20); Immature Granulocytes % (auto) 0.3 %; Lymphocytes # (auto) 2.52 K/uL (1.20-3.40); Lymphocytes % (auto) 38.5 %; Mean Corpuscular Hemoglobin 30.7 pg (25.0-34.0); Mean Corpuscular Hgb Conc 33.6 g/dL (32.0-36.0); Mean Corpuscular Volume 91.2 fL (80.0-100.0); Mean Platelet Volume 9.7 fL (9.4-12.4); Monocytes # (auto) 0.79 K/uL (0.11-0.59); Monocytes % (auto) 12.1 %; Neutrophils # (auto) 3.04 K/uL (1.40-6.50); Neutrophils % (auto) 46.3 %; Platelet Count 203 K/uL (130-400); RDW Standard Deviation 40.5 fL (36.4-46.3); Red Blood Count 3.62 M/uL (4.70-6.10); White Blood Count 6.55 K/ul (4.8-10.8)
[2024-01-09 08:01] LABS: Calcium 7.8 mg/dl (8.6-10.3); Potassium 3.6 mmol/L (3.5-5.1)
[2024-01-09] MEDS: VANCOMYCIN HCL 1,500 MG in SODIUM CHLORIDE 0.9% 500 ML IV SCH (09:42)
[2024-01-09] MEDS: VANCOMYCIN LEVEL ONE (09:43)
[2024-01-09 09:56] LABS: BUN Creatinine Ratio 8.1 (10-20); Creatinine Clr Calc Pharmacy 135.7 ml/min
--- NOTE | 2024-01-09 11:43 | Pharmacy Report ---
Pharmacy PK ABX Note - Date of Service January 09, 2024 - Assessment and Plan Assessment 01/08 * Vanc level obtained this morning (8.2mcg/mL), indicating subtherapeutic dosing. * Blood and wound cx pending. * ID consult pending. 38 year old M receiving Vancomycin and Rocephin for treatment of L foot cellulitis. Culture from [facility] show MRSA. Wound and blood cultures pending here. Day # 1 of antimicrobial therapy. WBC 11.9, afebrile Plan Vancomycin * Maintenance dose: Increase to 1500 mg IV every 8 hours * Regimen is predicted to achieve target AUC/SOFIA of 400-600 mg/L.hr * Trough level ordered for: 01/10/24, prior to the 4th dose of new regimen Rocephin 2g IV Q24 Pharmacy will continue to follow and will adjust dose/frequency as necessary. Thank you. Pharmacy has transitioned to AUC monitoring for vancomycin. AUC/SOFIA is the preferred PK/PD target and is associated with decreased risk of nephrotoxicity compared to traditional trough targets.
--- NOTE | 2024-01-10 07:50 | Electrocardiogram Report ---
Test Reason : Blood Pressure : */* mmHG Vent. Rate : 83 BPM Atrial Rate : 83 BPM P-R Int : 140 ms QRS Dur : 114 ms QT Int : 378 ms P-R-T Axes : 59 73 60 degrees QTcB Int : 444 ms Normal sinus rhythm Incomplete right bundle branch block with repolarization abnormality Minor Anterior ST elevation, most consistent with repolarization variant Abnormal ECG No previous ECGs available Confirmed by Mark Hu ([id number]) on 01/10/2024 7:49:56 AM Referred By: REFERRED SELF Confirmed By: Mark Hu
[2024-01-10 08:01] VITALS: RESP 16
[2024-01-10 08:22] LABS: Creatinine Clr Calc Pharmacy 159.3 ml/min
[2024-01-10] MEDS: VANCOMYCIN LEVEL ONE (09:40)
[2024-01-10] MEDS: DAPTOmycin 300 MG in SYRINGE 0 ML IV SCH (10:16)
--- NOTE | 2024-01-10 13:51 | Infectious Disease Consult ---
Date of Service January 10, 2024 Telehealth Information I performed this visit using a real-time telehealth connection between my location and the patients location ([facility]). After connecting through interactive tele-video, patient was identified by name and date of and/or wristband check.Patient (or authorized healthcare litigation claim representative) was informed that this was a telemedicine visit and it was being conducted confidentially over secure lines. My office door was closed and no one else was present in the room with me.Patient (or authorized healthcare litigation claim representative) provided consent to proceed with the visit, expressed an understanding of privacy and security of the telemedicine visit, and gave permission to have a hospital litigation claim representative in the room in order to assist with the visit and to conduct portions of the visit, as needed. I informed the patient (or authorized healthcare litigation claim representative) that I reviewed their record and presented the opportunity for them to ask any questions regarding the visit today. The patient agreed to participate. Assessment & Plan (1) Cellulitis of left lower extremity: Plan: MRSA infection improving on IV vanco/daptomycin. No evidence of deeper abscess or osteomyelitis at this time. (2) Cocaine abuse: Plan 1. OK to D/C daptomycin and ceftriaxone 2. Clindamycin 300mg po qid to extend through 01/18/24 3. HIV Ag/Ab and chronic viral hepatitis screening recommended 4. Ongoing wound care History of Present Illness History of Present Illness Mr. Bradley is a 38yo male with a h/o IVDU and active cocaine use admitted for left ankle wound infection. He apparently was seen last week at the [place] ED a nd given cephalexin and TMP-SMX empirically. He returned to their ED however and was admitted briefly. He left there AMA and was admitted to [facility] on 01/08/24 where he was started on IV vancomycin and CTX, followed by daptomycin. Today he reports feeling overall better. The pain and swelling has improved. He has remained afebrile. Cultures taken at [place] from the wound on 01/05/24 have shown MRSA. Repeat cultures here from the wound have been unremarkable to date. Allergies Allergy/AdvReac Type Severity Reaction Status Date / Time No Known Allergies Allergy Unverified 01/08/24 04:01 Home Medications Medication Instructions Recorded Confirmed Type quetiapine 100 mg tablet (Seroquel) 100 mg PO HS 01/08/24 01/08/24 History sertraline 100 mg tablet (Zoloft) 100 mg PO DAILY 01/08/24 01/08/24 History Patient History Social History Smoking Status: Current every day smoker Tobacco Type: Cigarettes Second Hand Exposure: No; Do You Dip or Chew Tobacco: No; Tobacco Cessation Education Requested by Patient: No Hx Alcohol Use: No Hx Substance Use: Yes Last Used Substance: Days (ago) Preferred Language: Mohawk Communication Ability: Impaired Green Plumber Required: No Beliefs That Will Affect Care: None Current Living Situation: Significant Other Other Information That Helps Us Care for You: No Feels Safe at Home: Yes Safety Concerns: Feels Safe At This Time Assistive Devices: None Review of Systems Gen- No fevers, malaise, or weakness HEENT- No KRAMER or sore throat Resp- No SOB or cough CV_ No chest pain GI- No N/V or diarrhea - No dysuria MSK- Left ankle wound as per HPI Neuro- No focal deficit Physical Exam Gen- NAD, cooperative with exam HEENT- NC AT Resp- Normal respirations on room air Ext- Left ankle wound evaluated. Some mild erythema and ulcerations with clean, granulation tissue present Skin -no rash Results & Data Vital Signs (Past 12 Hours) Vital Signs Temp Pulse Resp BP Pulse Ox O2 Del Method 01/10/24 07:56 36.7 C 78 16 127/73 98 Room Air Laboratory Results WBC 11.9 -> 6.55 Hgb 11.1 Platelets 203 Creatinine 0.74 BUN 6 Urine tox screen: positive fentanyl, cocaine Diagnostic Findings Cultures from [facility] from ankle on 01/04 with MRSA Cultures from wound at [facility] on 01/07 show mixed skin kylah Blood cultures 01/08/[address] LE reviewed: No abscess or osteomyelitis
--- NOTE | 2024-01-10 14:14 | Discharge Summary ---
Date of Service January 10, 2024 Admission HPI Per Admitting Provider 38-year-old male with no significant past medical history with ongoing cocaine use and history of IV drug use and states not using IV drugs since last 2 years comes because of left ankle wound and cellulitis. Patient states he had some bug bite 4 days ago and started to develop infection in the left ankle region. He went to [facility] couple of days ago and was prescribed seems Keflex and Bactrim and discharged. He did not take those antibiotics but the next day the infection was getting worse so he went back to [facility] again yesterday when they admitted him. Patient got paranoid and signed out AMA. And as the infection is getting worse and spreading he came here today and agrees to stay in hospital. Cultures from the [facility] showing MRSA in the wound which is also resistant to Bactrim and sensitive to Vanco and Dapto. Patient states was having fevers. Has pain in the left leg and also feeling some lump in the left groin region. Patient states he also has some small lump under the chin which he is concerned about. Denies any headache. Vision is okay. No runny nose or sore throat or cough. No nausea. No chest pain. Says he has some shortness of breath. No abdominal pain. Says he is constipated. Micturating okay. 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 Past medical history none Past surgical history left collarbone surgery Social history. Smokes 1 pack a day since age 24. Denies any alcohol use. History of IV drug use is not doing IV drugs since last 2 years. Says she uses cocaine sometimes but not on regular basis last time used was yesterday. Family history. Father had prostate and bladder cancer. Mother has hypertension. Admission Exam Per Admitting Provider General- Not in distress Head- atraumatic Eyes- PERRL. ENT- oropharynx clear Neck- supple, no JVD. Lungs- clear to auscultation no wheezing or crackles Heart- regular rhythm; no murmur, no gallop. Abdomen- normal bowel sounds, soft, nontender, no distension Extremities- open ulcer/wound seen in left ankle medial aspect with surrounding edema and erythema seen. Neuro- alert, oriented PERRL, no facial palsy; no dysarthria; moves extremities Principal Diagnosis cellulitis left ankle Discharge Exam Neuro: AAOx4, PERRLA, no aphagia, memory changes, CNII-XII grossly intact HEENT: head normocephalic, moist mucus membranes (+) two painless nodules appreciated on submandibular region of lower jaw. CV: S1/S2, (-) M/G/R, (-) edema, cap refill < 3 seconds Resp: Lungs CTA in all pedro. On RA GI: Abdomen S/NT/ND, Ax4 bowel sounds, (-) CVA tenderness Musculoskeletal: 5/5 B/L UE strength, 5/5 B/L LE strength. No gait disturbance Skin: (-) rashes , (+) left lower extremity swelling with medial aspect of the ankle (-) malodor (+) circumferential erythema Psych: euthymic mood Discharge Data Allergies Allergy/AdvReac Type Severity Reaction Status Date / Time No Known Allergies Allergy Unverified 01/08/24 04:01 Consultations 01/08/24 01:17 ED Decision to Admit Stat 01/09/24 10:04 Consult Infectious Diseases Routine Ordered Studies 01/08/24 00:42 US venous doppler LE LT Stat 01/08/24 03:21 CT ankle LT wo con Urgent 01/08/24 03:21 CT foot LT wo con Urgent US soft tissue neck Routine 01/08/24 11:01 CT neck soft tissues [CT soft tissue neck wo/w con] Routine Hospital Course (1) Cellulitis of left lower extremity: 38-year-old male with no PMH with ongoing cocaine use and history of IV drug use and states not using IV drugs since last 2 years comes because of left ankle wound and cellulitis. Reports he had some bug bite 4 days ago and started to develop infection in the left ankle region. He went to [facility] couple of days ago and was prescribed seems Keflex and Bactrim and discharged. He did not take those antibiotics but the next day the infection was getting worse so he went back to [facility] ER again yesterday when they admitted him. Patient got paranoid and signed out AMA. And as the infection is getting worse and spreading he came here today and agrees to stay in hospital. Cultures from the [facility] showing MRSA in the wound which is also resistant to Bactrim and sensitive to Vanco and Dapto. Patient states was having fevers. Has pain in the left leg and also feeling some lump in the left groin region. In the ED, he underwent a lower Lower extremity CT that did not reveal any underlying abscess or necrosis or other subcu fat stranding and soft tissue swelling throughout the distal calf and ankle. He was started on IV vancomycin plus Rocephin on 01/07. Leukocytosis improved from mild elevation at 11-6. Infectious disease evaluated patient on 01/09 and recommended discontinuation of IV antibiotics and transition to oral for discharge purposes and to continue taking clindamycin 300 mg p.o. 4 times daily until 01/17. [facility] was following patient as an inpatient and recommends continuing postdischarge. Separately he had complaints of 2 painless submental/submandibular enlarged lymph nodes for which a soft tissue ultrasound and neck CT were obtained reveali ng a subcentimeter submandibular lymph node. TSH normal and no goiter on exam. Patient does have family history of bladder and prostate CA. Likely related to infection recommend outpatient follow-up if persists. Infectious Disease recommended HIV testing. Discussed with patient who has stated that he has been tested in the past and negative for HIV. He declines any further/repeat testing. Total Time Total Time Spent Total Time Spent (In Minutes): I spent a total of 58 minutes coordinating, documenting, and providing care for this patient excluding time spent in the performance of separately billed services. All of the aforementioned completed while collaborating with the assigned attending physician for a full treatment plan. Please see their addendum for further details. Discharge Plan Discharge Items Patient Disposition: Home - Self-Care Reason For Visit: LEFT FOOT WOUND AND CELLULITIS Discharge Diagnosis: left ankle cellulitis Condition on Discharge: Good Activity: Resume your previous activity Non-emergency contact: Primary Care Provider Call non-emergency contact if: you have any medication questions, your temperature is above 101, your wound has increased redness, your wound has increased drainage and your wound pain has increased Follow-up/Referrals: [facility] [Other] - 01/19/24 9:[address] Jose Maston [Other] - 01/26/24 1:30 pm Diet: Regular Addtl Attending Provider Instructions: You were admitted to the hospital with left ankle cellulitis (soft tissue infection) on 01/08/24. You received an ankle xray and foot CT with confirmed soft tissues swelling and ruled out an abscess or necrotizing fasciitis. You have been on IV Vancomycin and Rocephin. Wound care has been following along with your care as well. Today, Infectious Disease saw you and recommended that you continue with oral antibiotics after leaving the hospital to continue to treat your infection. Upon leaving the hospital, I recommend that you go to [facility]'s pharmacy to fiber picker your antibiotic. It was recommended that you proceed with HIV testing given your history of IV drug use and tattoo's, which you have deferred at this time. You will take the following medication: Clindamycin 300mg by mouth FOUR times per day and will complete this on 01/18/24 I would recommend that you take a probiotic as well over the counter while you take the oral antibiotic to preserve your gut kylah. It is recommended that you follow up with the following appointments: Dr. Garcia, your PCP, on Thursday 01/25 @ 1:30 PM. Address: [address] [place] [id number] [facility] Clinic: Thursday 01/18 @ 9:00 AM. Address: [address] [place] [address] [address], [place] [address] OTHER INSTRUCTIONS: Seek medical attention if you have: * temperature above 101 * chest pain or trouble breathing * abdominal pain, nausea, vomiting * diarrhea, dark stools or bloody stools * any unanswered questions or concerns Call 911 if symptoms are severe. Please take good care of yourself. It has been a pleasure taking care of you. Please take care of yourself. If you have any questions regarding your recent hospitalization please contact [facility] and request Keith Roseist @ [phone]. Pending Studies at Discharge: No Stand-Alone Forms: My [facility], Smoking Cessation Medications and DC Order Prescriptions: New clindamycin HCl 300 mg capsule 300 mg PO QID 7 Days Qty: 28 0RF Continued sertraline [Zoloft] 100 mg Tablet 100 mg PO DAILY quetiapine [Seroquel] 100 mg Tablet 100 mg PO HS Discharge Orders: Discharge Order (Routine); Ordered 01/10/24 Ordered By: Deann Larry/Other Patient Handouts: Staph MRSA Admission Data Admit Date/Time: 01/08/24 02:08 Attending Provider: Himanshu Shirley Admit Provider: Surjit Norton Primary Care Provider: Jose Matson Other Providers: Surjit Norton; Adrian Blank; Kelly Ortega; Buck Gallagher I.; Jesus East II; Frances Veras; Michael Faith; Larry Corona; Susy Quintero Other Interventions: Discharge Summary Assessment (RN) Last Done: 01/10/24 14:53 Supervising Physician Co-Signing Physician Notes I have seen and examined the patient at bedside on day of discharge. Discussed the case with the collaborating advanced practitioner. I agree with the do cumentation as above. I have reviewed and confirmed the patients medical history, thefindings on physical examination, and the patients diagnosis and treatment plan with Manny SANCHEZ and agree with the information documented. Note has been edited as needed. Left lower extremity cellulitis Drug abuse Appreciate ID input. Discontinue daptomycin, Rocephin>> transition to clindamycin on discharge Counseled to quit drug use Needs follow-up with wound care as outpatient
[2024-01-10 15:14] VITALS: BP 143/87; PULSE 88; TEMP 97.7; O2SAT 99
[2024-01-10 16:37] LABS: 7-Aminoclonaz, Confirm NEGATIVE ng/mL (<25); Cocaine, Urine >20000 ng/mL (<100); Hydro-Alp Ur, GC/MS NEGATIVE ng/mL (<25); Hydroxyethylflurazepam, Conf NEGATIVE ng/mL (<50); Hydroxymidazolam Ur, GC/MS NEGATIVE ng/mL (<50); Hydroxytriazolam NEGATIVE ng/mL (<50); Lorazepam, Ur GC/MS NEGATIVE ng/mL (<50); Nordiazepam, Confirm NEGATIVE ng/mL (<50); Norfentanyl, Urine >250.0 ng/mL (<0.5); Oxazepam Ur, GC/MS NEGATIVE ng/mL (<50); Temazepam, Confirm NEGATIVE ng/mL (<50); medMATCH Fentanyl, Urine DNR; medMATCH Norfentanyl, Urine DNR
== END 2024-01-10 19:15 | disposition home or self-care (01) | DRG 603 ==
LOC: ED 00:18 → INTOOBSV 02:08 → SUATTDRO 02:08 → 3W 02:08